=== PATIENT | male | born 1975 | race Caucasian/White ===

== ENCOUNTER 2016-09-21 20:50 | Emergency (ER) | payer OTHER | END 2016-09-22 00:05 | disposition home or self-care (01) | LOC: ER1 20:50 | DX: S60.212A Contusion of left wrist, initial encounter (principal); Z88.6 Allergy status to analgesic agent; V44.5XXA Car driver injured in collision with heavy transport vehicle or bus in traffic accident, initial encounter | CPT/HCPCS: 71101; 73110; 99284; J1885 ==

== ENCOUNTER 2021-06-09 09:05 | Emergency (ER) | payer OTHER ==
[~2021-06-09 09:05] MED LIST: BACTROBAN OINT22 GM EXT; NORCO 5-325 TA1 EACH PO
[2021-06-09 10:26] LABS: HEMOGLOBIN 18.1 gm/dl (14.0-17.5); RED BLOOD COUNT 5.75 M/UL (4.20-5.50); WHITE BLOOD COUNT 9.3 K/UL (4.5-11.0)
[2021-06-09 10:44] LABS: BUN/CREATININE RATIO 14 (0-10)
[2021-06-09] MEDS ORDERED: OMNICEF 300 MG300 MG PO (12:38)
[2021-06-09] MEDS ORDERED: ATROVENT-HFA12.9 GM INH (12:38)
[2021-06-09] MEDS ORDERED: ZITHROMAX250 MG PO (12:38)
[2021-06-09] MEDS ORDERED: MEDROL DOSEPAK 24 MG PO (12:38)
[2021-06-09] MEDS ORDERED: PHENERGAN 25 MG25 M1 PO (12:38)
== END 2021-06-09 13:25 | disposition home or self-care (01) ==
LOC: ER1 09:05
PROVIDERS: Physician Assistant Medical
DX: J18.9 Pneumonia, unspecified organism (principal); Z20.822 Contact with and (suspected) exposure to COVID-19; E78.5 Hyperlipidemia, unspecified; I10 Essential (primary) hypertension; Z88.5 Allergy status to narcotic agent
CPT/HCPCS: 71045; 80053; 82550; 82553; 83690; 83874; 83880; 84484; 85025; 93005; 96374; 99285; J0696; J2405; J7030; U0002

== ENCOUNTER → 2021-08-11 | Outpatient (CLI) | payer OTHER ==
[~2021-08-11] MED LIST changes: +ATROVENT-HFA12.9 GM INH; +MEDROL DOSEPAK 24 MG PO; +OMNICEF 300 MG300 MG PO; +PHENERGAN 25 MG25 M1 PO; +ZITHROMAX250 MG PO
== END ==
LOC: US 08-07 11:00
DX: R59.1 Generalized enlarged lymph nodes (principal)
CPT/HCPCS: 76882